=== PATIENT | male | born 1970 | race Two or more races ===

== ENCOUNTER 2018-08-29 16:10 | Inpatient (IN) | payer SELFPAY ==
[~2018-08-29] VITALS: Ht 162.6 cm; Wt 66.2 kg
--- NOTE | 2018-08-29 16:29 | PHYS DOC ---
Adult General Chief Complaint Chief Complaint: NEURO SYMPTOMS/DEFICITS HPI HPI Patient is a 48 year old MALE, PRESENTED to ER today for evaluation of left-sided facial numbness and pain, left side headache for 2 days. Patient also has numbness and tingling sensation on his left-sided face and left upper and lower extremities. HIS did note that he has some slurred speech as well. Patient is a smoker, has history of HTN but not on any medication. He does not have any history OF CAD, DM, not on any medication, denied any recent travel or operation. he denies any chest pain, no abdominal pain, no nausea vomiting. He denies any head or neck injury. HE denies any fever. Review of Systems Review of Systems Constitutional: Denies fever or chills [] Eyes: Denies change in visual acuity, redness, or eye pain [] HENT: Denies nasal congestion or sore throat. POSITIVE FOR LEFT SIDE HEADACHE. Respiratory: Denies cough or shortness of breath [] Cardiovascular: No additional information not addressed in HPI [] GI: Denies abdominal pain, nausea, vomiting, bloody stools or diarrhea [] : Denies dysuria or hematuria [] Musculoskeletal: Denies back pain or joint pain [] Integument: Denies rash or skin lesions [] Neurologic: Positive for left side headache,left side facial , left upper and lower extremities numbness and tingling sensation. Endocrine: Denies polyuria or polydipsia [] All other systems were reviewed and found to be within normal limits, except as documented in this note. Current Medications Current Medications Current Medications Medications (Trade) Dose Ordered Sig/William Start Time Stop Time Status Last Admin Dose Admin Ceftriaxone Sodium (Rocephin) 1 gm 1X ONCE 08/29/18 17:30 08/29/18 17:31 DC 08/29/18 17:37 1 GM Insulin Human Regular (HumuLIN R VIAL) 10 unit 1X ONCE 08/29/18 17:30 08/29/18 17:31 DC 08/29/18 17:45 10 UNIT Labetalol HCl (Normodyne Iv Push) 10 mg 1X ONCE 08/29/18 18:00 08/29/18 18:01 UNV Ondansetron HCl (Zofran) 4 mg PRN Q8HRS PRN 08/29/18 17:45 08/30/18 17:44 Sodium Chloride 1,000 ml @ 100 mls/hr Q10H 08/29/18 17:45 08/30/18 17:44 Allergies Allergies Allergies Coded Allergies Type Severity Reaction Last Updated Verified No Known Drug Allergies 08/29/18 No Physical Exam Physical Exam Constitutional: Well developed, well nourished, no acute distress, non-toxic appearance. [] HENT: Normocephalic, atraumatic, bilateral external ears normal, oropharynx moist, no oral exudates, nose normal. [] Eyes: PERRLA, EOMI, conjunctiva normal, no discharge. [] Neck: Normal range of motion, no tenderness, supple, no stridor. [] Cardiovascular:Heart rate regular rhythm, no murmur [] Lungs & Thorax: Bilateral breath sounds clear to auscultation [] Abdomen: Bowel sounds normal, soft, no tenderness, no masses, no pulsatile masses. [] Skin: Warm, dry, no erythema, no rash. [] Back: No tenderness, no CVA tenderness. [] Extremities: No tenderness, no cyanosis, no clubbing, ROM intact, no edema. [] Neurologic: Alert and oriented X 3, normal motor function, normal sensory function, no focal deficits noted. [] Psychologic: Affect normal, judgement normal, mood normal. [] Current Patient Data Vital Signs Vital Signs Date Time Temp Pulse Resp B/P (MAP) Pulse Ox O2 Delivery O2 Flow Rate FiO2 08/29/18 16:54 124 18 98 08/29/18 16:20 99.5 197/122 (147) Room Air 99.5 Lab Values Laboratory Tests Test 08/29/18 16:35 White Blood Count 11.1 x10^3/uL (4.0-11.0) H Red Blood Count 5.04 x10^6/uL (4.30-5.70) Hemoglobin 15.5 g/dL (13.0-17.5) Hematocrit 45.2 % (39.0-53.0) Mean Corpuscular Volume 90 fL (79-100) Mean Corpuscular Hemoglobin 31 pg (25-35) Mean Corpuscular Hemoglobin Concent 34 g/dL (31-37) Red Cell Distribution Width 12.9 % (11.5-14.5) Platelet Count 308 x10^3/uL (140-400) Neutrophils (%) (Auto) 73 % (31-73) Lymphocytes (%) (Auto) 17 % (24-48) L Monocytes (%) (Auto) 9 % (0-9) Eosinophils (%) (Auto) 0 % (0-3) Basophils (%) (Auto) 1 % (0-3) Neutrophils # (Auto) 8.1 x10^3uL (1.8-7.7) H Lymphocytes # (Auto) 1.9 x10^3/uL (1.0-4.8) Monocytes # (Auto) 0.9 x10^3/uL (0.0-1.1) Eosinophils # (Auto) 0.0 x10^3/uL (0.0-0.7) Basophils # (Auto) 0.1 x10^3/uL (0.0-0.2) Prothrombin Time 12.2 SEC (11.7-14.0) Prothrombin Time INR 0.9 (0.8-1.1) PTT 29 SEC (24-38) Sodium Level 136 mmol/L (136-145) Potassium Level 3.6 mmol/L (3.5-5.1) Chloride Level 97 mmol/L (98-107) L Carbon Dioxide Level 28 mmol/L (21-32) Anion Gap 11 (6-14) Blood Urea Nitrogen 11 mg/dL (8-26) Creatinine 0.9 mg/dL (0.7-1.3) Estimated GFR (Cockcroft-Gault) 90.4 BUN/Creatinine Ratio 12 (6-20) Glucose Level 444 mg/dL (70-99) H Glucose (Fingerstick) 435 mg/dL (70-99) H Calcium Level 9.1 mg/dL (8.5-10.1) Magnesium Level 2.0 mg/dL (1.8-2.4) Total Bilirubin 0.4 mg/dL (0.2-1.0) Aspartate Amino Transferase (AST) 12 U/L (15-37) L Alanine Aminotransferase (ALT) 16 U/L (16-63) Alkaline Phosphatase 100 U/L (46-116) Troponin I Quantitative < 0.017 ng/mL (0.000-0.055) RQ-Pqq-Y-Type Natriuretic Peptide 100 pg/mL (0-124) Total Protein 7.7 g/dL (6.4-8.2) Albumin 3.4 g/dL (3.4-5.0) Albumin/Globulin Ratio 0.8 (1.0-1.7) L Thyroid Stimulating Hormone (TSH) 0.405 uIU/mL (0.358-3.74) Ethyl Alcohol Level < 10 mg/dL (0-10) Laboratory Tests 08/29/18 16:35 Laboratory Tests 08/29/18 16:35 EKG EKG EKG WAS READ BY THIS PHYSICIAN AT 1623, RATE OF 123 BPM, NO STEMI, SINUS TACHYCARDIA[] Radiology/Procedures Radiology/Procedures [][facility] [address] [place] [address] IMAGING REPORT Signed PATIENT: SUSIE COLON ACCOUNT: [id number] : 1970 LOCATION: ER AGE: 48 SEX: M EXAM STATUS: REG ER ORD. PHYSICIAN: PARMINDER RAMIREZ DO REASON: left side facial numbness, left side numbness PROCEDURE: CT HEAD WO CONTRAST CT HEAD WO CONTRAST Clinical indications: left sided numbness, left-sided facial numbness. COMPARISON: None available. Technique: Noncontrast axial cross sectional scanning of the head was performed. PQRS compliance Statement One or more of the following individualized dose reduction techniques were utilized for this study: 1. Automated exposure control 2. Adjustment of the mA and/or kV according to patient size 3. Use of iterative reconstruction technique Findings: No acute intracranial hemorrhage or midline shift or mass-effect or hydrocephalus or extra-axial fluid collection is seen. No focal hypodense area or sulci effacement is seen to indicate an acute infarct or edema radiographically. No skull fracture or pneumocephalus is seen. No opacification of the mastoid sinuses or the middle ear cavities is seen. There is a large air-fluid level with mucosal thickening of the left maxillary sinus. The maxillary sinuses are not completely seen in this study. Impression: No acute intracranial abnormality is seen. Severe acute left maxillary sinusitis. Electronically signed by: Natalya Sears MD (08/29/2018 5:10 PM) [place] [id number] DICTATED and SIGNED BY: NATALYA SEARS MD DATE: 08/29/18 0220 Course & Med Decision Making Course & Med Decision Making Pertinent Labs and Imaging studies reviewed. (See chart for details) [] Dragon Disclaimer Dragon Disclaimer This electronic medical record was generated, in whole or in part, using a voice recognition dictation system. Departure Departure Impression: Primary Impression: Paresthesia of left upper and lower extremity Additional Impressions: Facial paresthesia Hyperglycemia Hypertension Sinusitis, acute Disposition: 09 ADMITTED INPATIENT Admitting Physician: Other (Dr. Cuate CALVERT) Condition: STABLE Referrals: UNKNOWN PCP NAME (PCP) Problem Qualifiers PARMINDER RAMIREZ DO Aug 29, 2018 16:29
[2018-08-29 16:50] LABS: BASO # 0.1 x10^3/uL (0.0-0.2); BASO % 1 % (0-3); EOS % 0 % (0-3); HEMATOCRIT 45.2 % (39.0-53.0); HEMOGLOBIN 15.5 g/dL (13.0-17.5); LYMPH # 1.9 x10^3/uL (1.0-4.8); LYMPH % 17 % (24-48); MEAN CORPUSCULAR HEMOGLOBIN 31 pg (25-35); MEAN CORPUSCULAR HGB CONC 34 g/dL (31-37); MEAN CORPUSCULAR VOLUME 90 fL (79-100); MONO # 0.9 x10^3/uL (0.0-1.1); MONO % 9 % (0-9); NEUT # 8.1 x10^3uL (1.8-7.7); NEUT % 73 % (31-73); PLATELET COUNT 308 x10^3/uL (140-400); RED BLOOD COUNT 5.04 x10^6/uL (4.30-5.70); RED CELL DISTRIBUTION WIDTH 12.9 % (11.5-14.5); WHITE BLOOD COUNT 11.1 x10^3/uL (4.0-11.0)
[2018-08-29 16:59] LABS: PROTHROMBIN TIME PATIENT 12.2 SEC (11.7-14.0)
--- NOTE | 2018-08-29 17:10 | RAD ---
PORTABLE CHEST 1V Clinical Indication: S/P CHEST PAIN ALSO STATES HX OF LEFT SIDED EYE PAIN. NOT SLEEP LAST NIGHT BECAUSE OF IT HX OF DIABETES Comparison: None. Findings: The cardiomediastinal silhouette is normal. Lungs are clear. There is no pneumothorax. No pleural effusion is appreciated. No acute bone abnormality. IMPRESSION: No acute cardiopulmonary process. Electronically signed by: Nathanael Mejia MD (08/29/2018 5:05 PM) [id number]
--- NOTE | 2018-08-29 17:14 | RAD ---
CT HEAD WO CONTRAST Clinical indications: left sided numbness, left-sided facial numbness. COMPARISON: None available. Technique: Noncontrast axial cross sectional scanning of the head was performed. PQRS compliance Statement One or more of the following individualized dose reduction techniques were utilized for this study: 1. Automated exposure control 2. Adjustment of the mA and/or kV according to patient size 3. Use of iterative reconstruction technique Findings: No acute intracranial hemorrhage or midline shift or mass-effect or hydrocephalus or extra-axial fluid collection is seen. No focal hypodense area or sulci effacement is seen to indicate an acute infarct or edema radiographically. No skull fracture or pneumocephalus is seen. No opacification of the mastoid sinuses or the middle ear cavities is seen. There is a large air-fluid level with mucosal thickening of the left maxillary sinus. The maxillary sinuses are not completely seen in this study. Impression: No acute intracranial abnormality is seen. Severe acute left maxillary sinusitis. Electronically signed by: Maurizio Sears MD (08/29/2018 5:10 PM) [place] [id number]
[2018-08-29] MEDS ORDERED: IV NORMAL SALINE 1000ML BAG 1,000 ML IV ONE (17:15)
[2018-08-29 17:26] LABS: CALCIUM 9.1 mg/dL (8.5-10.1); CREATININE 0.9 mg/dL (0.7-1.3); GFR 90.4; POTASSIUM 3.6 mmol/L (3.5-5.1)
[2018-08-29] MEDS ORDERED: cefTRIAXone IV Push 1 GM VIAL. IVP ONE (17:30)
[2018-08-29] MEDS ORDERED: INSULIN REGULAR 100 UNIT/ML 3ML VIAL. IV ONE (17:30)
[2018-08-29 17:33] LABS: ALBUMIN 3.4 g/dL (3.4-5.0); ALBUMIN/GLOBULIN RATIO 0.8 (1.0-1.7); TOTAL BILIRUBIN 0.4 mg/dL (0.2-1.0); TOTAL PROTEIN 7.7 g/dL (6.4-8.2)
[2018-08-29] MEDS ORDERED: ONDANSETRON PF 4 MG/2 ML VIAL. IV PRN ×2 (17:45→18:00)
--- NOTE | 2018-08-29 17:56 | PDOC1 ---
History and Physical Date of Admission Date of Admission DATE: 08/29/18 TIME: 17:50 Identification/Chief Complaint Chief Complaint Left arm weakness Source Source: Caregiver, Chart review, Patient History of Present Illness History of Present Illness Mr Murphy is a 48 year old male (portuguese speaking only) with uncertain PMHx (at least HTN) p/w left hand production broacher weakness with associated left- sided facial numbness and pain, left side headache for 2 days. Patient also has numbness and tingling sensation on his left-sided face and left upper and lower extremities. Spouse did note that he has some slurred speech as well since 2 days ago. Patient is a smoker, has history of HTN but not on any medication. He does not have any history of CAD, DM, not on any medication, denied any recent travel or recent illnesses. He denies any chest pain, no abdominal pain, no nausea vomiting. He denies any head or neck injury. He denies any fever. In ED was noted with BP 197/122 and glucose > 400 fasting (not DKA) and CT head with no intracranial abnormality, but severe left maxillary sinusitis noted. Past Medical History Cardiovascular: HTN Pulmonary: No pertinent hx GI: No pertinent hx Heme/Onc: No pertinent hx Hepatobiliary: No pertinent hx Psych: No pertinent hx Rheumatologic: No pertinent hx Infectious disease: No pertinent hx ENT: Sincusitis Renal/: No pertinent hx Endocrine: No pertinent hx Dermatology: No pertinent hx Past Surgical History Past Surgical History: No pertinent history Family History Family History: Diabetes, High Cholestrol, Hypertension Social History Smoke: 1 pack per day ALCOHOL: none Drugs: None Current Problem List Problem List Problems Medical Problems: (1) Facial paresthesia Status: Acute (2) Hyperglycemia Status: Acute (3) Hypertension Status: Acute (4) Paresthesia of left upper and lower extremity Status: Acute (5) Sinusitis, acute Status: Acute Current Medications Current Medications Current Medications Sodium Chloride 1,000 ml @ 1,000 mls/hr 1X ONCE IV Last administered on at 17:37; Start 08/29/18 at 17:15; Stop 08/29/18 at 18:14 Ceftriaxone Sodium (Rocephin) 1 gm 1X ONCE IVP Last administered on 08/29/18at 17:37; Start 08/29/18 at 17:30; Stop 08/29/18 at 17:31; Status DC Insulin Human Regular (HumuLIN R VIAL) 10 unit 1X ONCE IV Last administered on 08/29/18at 17:45; Start 08/29/18 at 17:30; Stop 08/29/18 at 17:31; Status DC Ondansetron HCl (Zofran) 4 mg PRN Q8HRS PRN IV NAUSEA/VOMITING; Start 08/29/18 at 17:45; Stop 08/30/18 at 17:44 Sodium Chloride 1,000 ml @ 100 mls/hr Q10H IV ; Start 08/29/18 at 17:45; Stop 08/30/18 at 17:44 Allergies Allergies: Coded Allergies: No Known Drug Allergies (Unverified , 08/29/18) ROS General: YES: Fatigue, Malaise; No: Chills, Night Sweats, Appetite, Other PSYCHOLOGICAL ROS: YES: Anxiety; No: Behavioral Disorder, Concentration difficultie, Decreased libido, Depression, Disorientation, Hallucinations, Hostility, Irritablity, Memory difficulties, Mood Swings, Obsessive thoughts, Physical abuse, Sexual abuse, Sleep disturbances, Suicidal ideation, Other Eyes: Yes Blurry vision; No Decreased vision, No Double vision, No Dry eyes, No Excessive tearing, No Eye Pain, No Itchy Eyes, No Loss of vision, No Photophobia, No Scotomata, No Uses contacts, No Uses glasses, No Other HEENT: YES: Heacaches, Sinus pain; No: Visual Changes, Hearing change, Nasal congestion, Nasal discharge, Oral lesions, Sore Throat, Epistaxis, Sneezing, Snoring, Tinnitus, Vertigo, Vocal changes, Other ALLERGY AND IMMUNOLOGY: No: Hives, Insect Bite Sensitivity, Itchy/Watery Eyes, Nasal Congestion, Post Nasal Drip, Seasonal Allergies, Other Hematological and Lymphatic: No: Bleeding Problems, Blood Clots, Blood Transfusions, Brusing, Night Sweats, Pallor, Swollen Lymph Nodes, Other ENDOCRINE: No: Breast Changes, Galactorrhea, Hair Pattern Changes, Hot Flashes , Malaise/lethargy, Mood Swings, Palpitations, Polydipsia/polyuria, Skin Changes , Temperature Intolerance, Unexpected Weight Changes, Other Breast: No New/Changing Breast Lumps, No Nipple changes, No Nipple discharge, No Other Respiratory: No: Cough, Hemoptysis, Orthopnea, Pleuritic Pain, Shortness of breath, SOB with excertion, Sputum Changes, Stridor, Tachypnea, Wheezing, Other Cardiovascular: No Chest Pain, No Palpitations, No Orthopnea, No Paroxysmal Noc. Dyspnea, No Edema, No Lt Headedness, No Other Gastrointestinal: Yes Nausea; No Vomiting, No Abdominal Pain, No Diarrhea, No Constipation, No Melena, No Hematochezia, No Other Genitourinary: No Dysuria, No Frequency, No Incontinence, No Hematuria, No Retention, No Discharge, No Urgency, No Pain, No Flank Pain, No Other, No , No , No , No , No , No , No Musculoskeletal: No Gait Disturbance, No Joint Pain, No Joint Stiffness, No Joint Swelling, No Muscle Pain, No Muscular Weakness, No Pain In:, No Swelling In:, No Other Neurological: Yes Gait Disturbance, Yes Impaired Coord/balance, Yes Numbness/ Tingling, Yes Speech Problems, Yes Weakness; No Behavorial Changes, No Bowel/Bladder ControlChng, No Confusion, No Dizziness, No Headaches, No Memory Loss, No Seizures, No Tremors, No Visual Changes, No Other Skin: No Dry Skin, No Eczema, No Hair Changes, No Lumps, No Mole Changes, No Mottling, No Nail Changes, No Pruritus, No Rash, No Skin Lesion Changes, No Other, No Acne Physical Exam General: Alert, Oriented X3, Cooperative, No acute distress HEENT: PERRLA Lungs: Clear to auscultation, Normal air movement Heart: S1S2, RRR, no gallops, no murmurs Abdomen: Normal bowel sounds, Soft, No tenderness, No hepatosplenomegaly, No masses Rectal Exam: not examined Extremities: No clubbing, No cyanosis, No edema, Normal pulses, No tenderness/ swelling Skin: No rashes, No breakdown, No significant lesion Neuro: Normal tone, Cranial nerves 3-12 NL, Reflexes 2+, Other (decreased sensation on left face and left arm, leg. Decreased left hand production broacher strength) Vitals Vitals Vital Signs Date Time Temp Pulse Resp B/P (MAP) Pulse Ox O2 Delivery O2 Flow Rate FiO2 08/29/18 16:54 124 18 98 08/29/18 16:20 99.5 197/122 (147) Room Air 99.5 Labs Labs Laboratory Tests Test 08/29/18 16:35 White Blood Count 11.1 x10^3/uL (4.0-11.0) Red Blood Count 5.04 x10^6/uL (4.30-5.70) Hemoglobin 15.5 g/dL (13.0-17.5) Hematocrit 45.2 % (39.0-53.0) Mean Corpuscular Volume 90 fL (79-100) Mean Corpuscular Hemoglobin 31 pg (25-35) Mean Corpuscular Hemoglobin Concent 34 g/dL (31-37) Red Cell Distribution Width 12.9 % (11.5-14.5) Platelet Count 308 x10^3/uL (140-400) Neutrophils (%) (Auto) 73 % (31-73) Lymphocytes (%) (Auto) 17 % (24-48) Monocytes (%) (Auto) 9 % (0-9) Eosinophils (%) (Auto) 0 % (0-3) Basophils (%) (Auto) 1 % (0-3) Neutrophils # (Auto) 8.1 x10^3uL (1.8-7.7) Lymphocytes # (Auto) 1.9 x10^3/uL (1.0-4.8) Monocytes # (Auto) 0.9 x10^3/uL (0.0-1.1) Eosinophils # (Auto) 0.0 x10^3/uL (0.0-0.7) Basophils # (Auto) 0.1 x10^3/uL (0.0-0.2) Prothrombin Time 12.2 SEC (11.7-14.0) Prothromb Time International Ratio 0.9 (0.8-1.1) Activated Partial Thromboplast Time 29 SEC (24-38) Sodium Level 136 mmol/L (136-145) Potassium Level 3.6 mmol/L (3.5-5.1) Chloride Level 97 mmol/L (98-107) Carbon Dioxide Level 28 mmol/L (21-32) Anion Gap 11 (6-14) Blood Urea Nitrogen 11 mg/dL (8-26) Creatinine 0.9 mg/dL (0.7-1.3) Estimated GFR (Cockcroft-Gault) 90.4 BUN/Creatinine Ratio 12 (6-20) Glucose Level 444 mg/dL (70-99) Glucose (Fingerstick) 435 mg/dL (70-99) Calcium Level 9.1 mg/dL (8.5-10.1) Magnesium Level 2.0 mg/dL (1.8-2.4) Total Bilirubin 0.4 mg/dL (0.2-1.0) Aspartate Amino Transf (AST/SGOT) 12 U/L (15-37) Alanine Aminotransferase (ALT/SGPT) 16 U/L (16-63) Alkaline Phosphatase 100 U/L (46-116) Troponin I Quantitative < 0.017 ng/mL (0.000-0.055) XN-Obe-B-Type Natriuretic Peptide 100 pg/mL (0-124) Total Protein 7.7 g/dL (6.4-8.2) Albumin 3.4 g/dL (3.4-5.0) Albumin/Globulin Ratio 0.8 (1.0-1.7) Thyroid Stimulating Hormone (TSH) 0.405 uIU/mL (0.358-3.74) Ethyl Alcohol Level < 10 mg/dL (0-10) Laboratory Tests Test 08/29/18 16:35 White Blood Count 11.1 x10^3/uL (4.0-11.0) Red Blood Count 5.04 x10^6/uL (4.30-5.70) Hemoglobin 15.5 g/dL (13.0-17.5) Hematocrit 45.2 % (39.0-53.0) Mean Corpuscular Volume 90 fL (79-100) Mean Corpuscular Hemoglobin 31 pg (25-35) Mean Corpuscular Hemoglobin Concent 34 g/dL (31-37) Red Cell Distribution Width 12.9 % (11.5-14.5) Platelet Count 308 x10^3/uL (140-400) Neutrophils (%) (Auto) 73 % (31-73) Lymphocytes (%) (Auto) 17 % (24-48) Monocytes (%) (Auto) 9 % (0-9) Eosinophils (%) (Auto) 0 % (0-3) Basophils (%) (Auto) 1 % (0-3) Neutrophils # (Auto) 8.1 x10^3uL (1.8-7.7) Lymphocytes # (Auto) 1.9 x10^3/uL (1.0-4.8) Monocytes # (Auto) 0.9 x10^3/uL (0.0-1.1) Eosinophils # (Auto) 0.0 x10^3/uL (0.0-0.7) Basophils # (Auto) 0.1 x10^3/uL (0.0-0.2) Prothrombin Time 12.2 SEC (11.7-14.0) Prothromb Time International Ratio 0.9 (0.8-1.1) Activated Partial Thromboplast Time 29 SEC (24-38) Sodium Level 136 mmol/L (136-145) Potassium Level 3.6 mmol/L (3.5-5.1) Chloride Level 97 mmol/L (98-107) Carbon Dioxide Level 28 mmol/L (21-32) Anion Gap 11 (6-14) Blood Urea Nitrogen 11 mg/dL (8-26) Creatinine 0.9 mg/dL (0.7-1.3) Estimated GFR (Cockcroft-Gault) 90.4 BUN/Creatinine Ratio 12 (6-20) Glucose Level 444 mg/dL (70-99) Glucose (Fingerstick) 435 mg/dL (70-99) Calcium Level 9.1 mg/dL (8.5-10.1) Magnesium Level 2.0 mg/dL (1.8-2.4) Total Bilirubin 0.4 mg/dL (0.2-1.0) Aspartate Amino Transf (AST/SGOT) 12 U/L (15-37) Alanine Aminotransferase (ALT/SGPT) 16 U/L (16-63) Alkaline Phosphatase 100 U/L (46-116) Troponin I Quantitative < 0.017 ng/mL (0.000-0.055) AW-Adz-J-Type Natriuretic Peptide 100 pg/mL (0-124) Total Protein 7.7 g/dL (6.4-8.2) Albumin 3.4 g/dL (3.4-5.0) Albumin/Globulin Ratio 0.8 (1.0-1.7) Thyroid Stimulating Hormone (TSH) 0.405 uIU/mL (0.358-3.74) Ethyl Alcohol Level < 10 mg/dL (0-10) Images Images Ct head - No acute intracranial hemorrhage or midline shift or mass-effect or hydrocephalus or extra-axial fluid collection is seen. No focal hypodense area or sulci effacement is seen to indicate an acute infarct or edema radiographically. No skull fracture or pneumocephalus is seen. No opacification of the mastoid sinuses or the middle ear cavities is seen. There is a large air-fluid level with mucosal thickening of the left maxillary sinus. The maxillary sinuses are not completely seen in this study. Impression: No acute intracranial abnormality is seen. Severe acute left maxillary sinusitis. CXR - No acute cardiopulmonary process. VTE Prophylaxis Ordered VTE Prophylaxis Devices: Yes VTE Pharmacological Prophylaxi: No Assessment/Plan Assessment/Plan A/P: Left sided weakness/numbness - exhibits sx of acute CVA on examination. 2 days later, so no tPA. Will control BP, ASA, statin. Consult Neurology. MRI is indicated Malignant HTN - could be cause of his weakness as well, will control with IV labetalol. Acute encephalopathy - per spouse, has been confused. likely from BP, CVA/TIA, and hyperglycemia. Will control BP Hyperglycemia - likely has DM, will place on basal bolus plus regimen, check A1c Left maxillary sinusitis - will treat with augmentin Smoker - higher risk for CVA, nicotine patch. FEN - ADA diet pending bedside swallow evaluation PPX - SCDs FULL CODE Inpatient for likely new CVA, malignant HTN and likely newly diagnosed diabetes with acute maxillary sinusitis, likely will require at least 2 midnights of inpatient care. SAAD CALVERT MD Aug 29, 2018 17:56
[2018-08-29] MEDS ORDERED: DEXTROSE 50% 25 GM / 50ML DISP.SYRIN. IV PRN (18:00)
[2018-08-29] MEDS ORDERED: HYDROcodone/APAP 5/325MG 1 TAB TABLET PO PRN (18:00)
[2018-08-29] MEDS ORDERED: LABETALOL 20 MG/4 ML DISP.SYRIN. IVP PRN (18:00)
[2018-08-29] MEDS ORDERED: MAGNESIUM HYDROXIDE 2,400 MG/30 ML ORAL.SUSP. PO PRN (18:00)
[2018-08-29] MEDS ORDERED: ZOLPIDEM 5 MG TABLET. PO PRN (18:00)
[2018-08-29] MEDS ORDERED: LABETALOL 20 MG/4 ML DISP.SYRIN. IVP ONE ×2 (18:00)
[2018-08-29] MEDS ORDERED: PROCHLORPERAZINE 10 MG/2 ML VIAL. IV PRN (18:00)
[2018-08-29] MEDS ORDERED: ACETAMINOPHEN 325 MG TABLET. PO PRN (18:00)
[2018-08-29] MEDS: HEPARIN for SUB-Q USE 5,000 UNIT/ML VIAL. SQ SCH (18:26)
[2018-08-29] MEDS: IV NORMAL SALINE 1000ML BAG 1,000 ML IV SCH (18:27)
[2018-08-29 19:57] VITALS: BP 137/87
[2018-08-29] MEDS ORDERED: INSULIN GLARGINE 300 UNITS/3 ML INSULN.PEN. SQ SCH (21:00)
[2018-08-29] MEDS: SENNOSIDES/DOCUSATE 8.6/50MG TABLET. PO SCH (21:00)
[2018-08-29] MEDS ORDERED: ATORVASTATIN CALCIUM 40 MG TABLET. PO SCH (21:30)
[2018-08-29] MEDS ORDERED: ASPIRIN CHEWABLE 81 MG TABLET. PO ONE (22:00)
[2018-08-29] MEDS: AMOXICILLIN/K CLAV 875/125MG TABLET. PO SCH (22:05)
[2018-08-29 23:33] VITALS: BP 141/89
[2018-08-30 03:18] VITALS: BP 140/89
[2018-08-30] MEDS: IV NORMAL SALINE 1000ML BAG 1,000 ML IV SCH ×2 (03:45→13:45)
[2018-08-30 05:15] LABS: BASO # 0.1 x10^3/uL (0.0-0.2); BASO % 1 % (0-3); EOS # 0.1 x10^3/uL (0.0-0.7); EOS % 1 % (0-3); HEMATOCRIT 40.6 % (39.0-53.0); LYMPH # 2.2 x10^3/uL (1.0-4.8); LYMPH % 21 % (24-48); MEAN CORPUSCULAR HEMOGLOBIN 31 pg (25-35); MEAN CORPUSCULAR HGB CONC 35 g/dL (31-37); MEAN CORPUSCULAR VOLUME 90 fL (79-100); MONO # 0.9 x10^3/uL (0.0-1.1); MONO % 9 % (0-9); NEUT # 7.2 x10^3uL (1.8-7.7); NEUT % 69 % (31-73); PLATELET COUNT 277 x10^3/uL (140-400); RED CELL DISTRIBUTION WIDTH 12.8 % (11.5-14.5); WHITE BLOOD COUNT 10.5 x10^3/uL (4.0-11.0)
[2018-08-30 05:32] LABS: CREATININE 0.6 mg/dL (0.7-1.3); GFR 144.4; POTASSIUM 3.3 mmol/L (3.5-5.1)
--- NOTE | 2018-08-30 06:04 | EKG ---
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
[2018-08-30] MEDS: HEPARIN for SUB-Q USE 5,000 UNIT/ML VIAL. SQ SCH ×3 (06:07→14:00)
[2018-08-30 07:00] VITALS: BP 137/84
--- NOTE | 2018-08-30 07:03 | PDOC ---
PROGRESS NOTES Chief Complaint Chief Complaint A/P: Left sided weakness/numbness - exhibits sx of acute CVA on examination. 2 days later, so no tPA. Will control BP, ASA, statin. Consulted Neurology. MRI is indicated, ordered. Malignant HTN - could be cause of his weakness as well, will control with IV labetalol. Add lisinopril, check microalbumin Acute encephalopathy - per spouse, has been confused, less so today. likely from BP, CVA/TIA, and hyperglycemia. Will control BP Hyperglycemia - likely has DM, will place on basal bolus plus regimen, check A1c Left maxillary sinusitis - will treat with augmentin, add clindamycin today Smoker - higher risk for CVA, nicotine patch. FEN - ADA diet pending bedside swallow evaluation PPX - SCDs FULL CODE Inpatient for likely new CVA, malignant HTN and likely newly diagnosed diabetes with acute maxillary sinusitis, likely will require at least 2 midnights of inpatient care. 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 Patient also has numbness and tingling sensation on his left-sided face and left upper and lower extremities. Spouse did note that he has some slurred speech as well since 2 days ago. Patient is a smoker, has history of HTN but not on any medication. He does not have any history of CAD, DM, not on any medication, denied any recent travel or recent illnesses. He denies any chest pain, no abdominal pain, no nausea vomiting. He denies any head or neck injury. He denies any fever. In ED was noted with BP 197/122 and glucose > 400 fasting (not DKA) and CT head with no intracranial abnormality, but severe left maxillary sinusitis noted. 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 Feeling a bit better today, less confused. Feels his left sided weakness improved. Still with some left eye pain and left maxillary pain, is better than last night. BP better. Has some new cough, states this happens every time he stops smoking. Plan: Add clindamycin for sinusitis. MRI brain, neurology consulted Add lisinopril for BP PT/OT to see Hopefully home in the next day or 2 Vitals Vitals Vital Signs Date Time Temp Pulse Resp B/P (MAP) Pulse Ox O2 Delivery O2 Flow Rate FiO2 08/30/18 03:18 98.5 93 18 140/89 (106) 97 Room Air 98.5 08/29/18 19:57 98.0 Physical Exam General: Alert, Oriented X3, Cooperative, No acute distress Abdomen: Normal bowel sounds, Soft, No tenderness, No hepatosplenomegaly, No masses Extremities: No clubbing, No cyanosis, No edema, Normal pulses, No tenderness/ swelling Skin: No rashes, No breakdown, No significant lesion Labs LABS Laboratory Tests Test 08/29/18 16:35 08/29/18 19:19 08/29/18 20:57 08/30/18 04:55 White Blood Count 11.1 x10^3/uL (4.0-11.0) 10.5 x10^3/uL (4.0-11.0) Red Blood Count 5.04 x10^6/uL (4.30-5.70) 4.50 x10^6/uL (4.30-5.70) Hemoglobin 15.5 g/dL (13.0-17.5) 14.0 g/dL (13.0-17.5) Hematocrit 45.2 % (39.0-53.0) 40.6 % (39.0-53.0) Mean Corpuscular Volume 90 fL (79-100) 90 fL (79-100) Mean Corpuscular Hemoglobin 31 pg (25-35) 31 pg (25-35) Mean Corpuscular Hemoglobin Concent 34 g/dL (31-37) 35 g/dL (31-37) Red Cell Distribution Width 12.9 % (11.5-14.5) 12.8 % (11.5-14.5) Platelet Count 308 x10^3/uL (140-400) 277 x10^3/uL (140-400) Neutrophils (%) (Auto) 73 % (31-73) 69 % (31-73) Lymphocytes (%) (Auto) 17 % (24-48) 21 % (24-48) Monocytes (%) (Auto) 9 % (0-9) 9 % (0-9) Eosinophils (%) (Auto) 0 % (0-3) 1 % (0-3) Basophils (%) (Auto) 1 % (0-3) 1 % (0-3) Neutrophils # (Auto) 8.1 x10^3uL (1.8-7.7) 7.2 x10^3uL (1.8-7.7) Lymphocytes # (Auto) 1.9 x10^3/uL (1.0-4.8) 2.2 x10^3/uL (1.0-4.8) Monocytes # (Auto) 0.9 x10^3/uL (0.0-1.1) 0.9 x10^3/uL (0.0-1.1) Eosinophils # (Auto) 0.0 x10^3/uL (0.0-0.7) 0.1 x10^3/uL (0.0-0.7) Basophils # (Auto) 0.1 x10^3/uL (0.0-0.2) 0.1 x10^3/uL (0.0-0.2) Prothrombin Time 12.2 SEC (11.7-14.0) Prothromb Time International Ratio 0.9 (0.8-1.1) Activated Partial Thromboplast Time 29 SEC (24-38) Sodium Level 136 mmol/L (136-145) 140 mmol/L (136-145) Potassium Level 3.6 mmol/L (3.5-5.1) 3.3 mmol/L (3.5-5.1) Chloride Level 97 mmol/L (98-107) 102 mmol/L (98-107) Carbon Dioxide Level 28 mmol/L (21-32) 28 mmol/L (21-32) Anion Gap 11 (6-14) 10 (6-14) Blood Urea Nitrogen 11 mg/dL (8-26) 10 mg/dL (8-26) Creatinine 0.9 mg/dL (0.7-1.3) 0.6 mg/dL (0.7-1.3) Estimated GFR (Cockcroft-Gault) 90.4 144.4 BUN/Creatinine Ratio 12 (6-20) Glucose Level 444 mg/dL (70-99) 178 mg/dL (70-99) Glucose (Fingerstick) 435 mg/dL (70-99) 177 mg/dL (70-99) 197 mg/dL (70-99) Calcium Level 9.1 mg/dL (8.5-10.1) 8.0 mg/dL (8.5-10.1) Magnesium Level 2.0 mg/dL (1.8-2.4) Total Bilirubin 0.4 mg/dL (0.2-1.0) Aspartate Amino Transf (AST/SGOT) 12 U/L (15-37) Alanine Aminotransferase (ALT/SGPT) 16 U/L (16-63) Alkaline Phosphatase 100 U/L (46-116) Troponin I Quantitative < 0.017 ng/mL (0.000-0.055) BU-Gfr-U-Type Natriuretic Peptide 100 pg/mL (0-124) Total Protein 7.7 g/dL (6.4-8.2) Albumin 3.4 g/dL (3.4-5.0) Albumin/Globulin Ratio 0.8 (1.0-1.7) Thyroid Stimulating Hormone (TSH) 0.405 uIU/mL (0.358-3.74) Ethyl Alcohol Level < 10 mg/dL (0-10) Assessment and Plan Assessmemt and Plan Problems Medical Problems: (1) Facial paresthesia Status: Acute (2) Hyperglycemia Status: Acute (3) Hypertension Status: Acute (4) Paresthesia of left upper and lower extremity Status: Acute (5) Sinusitis, acute Status: Acute Comment Review of Relevant I have reviewed the following items chance (where applicable) has been applied. Labs Laboratory Tests Test 08/29/18 16:35 08/29/18 19:19 08/29/18 20:57 08/30/18 04:55 White Blood Count 11.1 x10^3/uL (4.0-11.0) 10.5 x10^3/uL (4.0-11.0) Red Blood Count 5.04 x10^6/uL (4.30-5.70) 4.50 x10^6/uL (4.30-5.70) Hemoglobin 15.5 g/dL (13.0-17.5) 14.0 g/dL (13.0-17.5) Hematocrit 45.2 % (39.0-53.0) 40.6 % (39.0-53.0) Mean Corpuscular Volume 90 fL (79-100) 90 fL (79-100) Mean Corpuscular Hemoglobin 31 pg (25-35) 31 pg (25-35) Mean Corpuscular Hemoglobin Concent 34 g/dL (31-37) 35 g/dL (31-37) Red Cell Distribution Width 12.9 % (11.5-14.5) 12.8 % (11.5-14.5) Platelet Count 308 x10^3/uL (140-400) 277 x10^3/uL (140-400) Neutrophils (%) (Auto) 73 % (31-73) 69 % (31-73) Lymphocytes (%) (Auto) 17 % (24-48) 21 % (24-48) Monocytes (%) (Auto) 9 % (0-9) 9 % (0-9) Eosinophils (%) (Auto) 0 % (0-3) 1 % (0-3) Basophils (%) (Auto) 1 % (0-3) 1 % (0-3) Neutrophils # (Auto) 8.1 x10^3uL (1.8-7.7) 7.2 x10^3uL (1.8-7.7) Lymphocytes # (Auto) 1.9 x10^3/uL (1.0-4.8) 2.2 x10^3/uL (1.0-4.8) Monocytes # (Auto) 0.9 x10^3/uL (0.0-1.1) 0.9 x10^3/uL (0.0-1.1) Eosinophils # (Auto) 0.0 x10^3/uL (0.0-0.7) 0.1 x10^3/uL (0.0-0.7) Basophils # (Auto) 0.1 x10^3/uL (0.0-0.2) 0.1 x10^3/uL (0.0-0.2) Prothrombin Time 12.2 SEC (11.7-14.0) Prothromb Time International Ratio 0.9 (0.8-1.1) Activated Partial Thromboplast Time 29 SEC (24-38) Sodium Level 136 mmol/L (136-145) 140 mmol/L (136-145) Potassium Level 3.6 mmol/L (3.5-5.1) 3.3 mmol/L (3.5-5.1) Chloride Level 97 mmol/L (98-107) 102 mmol/L (98-107) Carbon Dioxide Level 28 mmol/L (21-32) 28 mmol/L (21-32) Anion Gap 11 (6-14) 10 (6-14) Blood Urea Nitrogen 11 mg/dL (8-26) 10 mg/dL (8-26) Creatinine 0.9 mg/dL (0.7-1.3) 0.6 mg/dL (0.7-1.3) Estimated GFR (Cockcroft-Gault) 90.4 144.4 BUN/Creatinine Ratio 12 (6-20) Glucose Level 444 mg/dL (70-99) 178 mg/dL (70-99) Glucose (Fingerstick) 435 mg/dL (70-99) 177 mg/dL (70-99) 197 mg/dL (70-99) Calcium Level 9.1 mg/dL (8.5-10.1) 8.0 mg/dL (8.5-10.1) Magnesium Level 2.0 mg/dL (1.8-2.4) Total Bilirubin 0.4 mg/dL (0.2-1.0) Aspartate Amino Transf (AST/SGOT) 12 U/L (15-37) Alanine Aminotransferase (ALT/SGPT) 16 U/L (16-63) Alkaline Phosphatase 100 U/L (46-116) Troponin I Quantitative < 0.017 ng/mL (0.000-0.055) IH-Hla-K-Type Natriuretic Peptide 100 pg/mL (0-124) Total Protein 7.7 g/dL (6.4-8.2) Albumin 3.4 g/dL (3.4-5.0) Albumin/Globulin Ratio 0.8 (1.0-1.7) Thyroid Stimulating Hormone (TSH) 0.405 uIU/mL (0.358-3.74) Ethyl Alcohol Level < 10 mg/dL (0-10) Laboratory Tests Test 08/29/18 16:35 08/29/18 19:19 08/29/18 20:57 08/30/18 04:55 White Blood Count 11.1 x10^3/uL (4.0-11.0) 10.5 x10^3/uL (4.0-11.0) Red Blood Count 5.04 x10^6/uL (4.30-5.70) 4.50 x10^6/uL (4.30-5.70) Hemoglobin 15.5 g/dL (13.0-17.5) 14.0 g/dL (13.0-17.5) Hematocrit 45.2 % (39.0-53.0) 40.6 % (39.0-53.0) Mean Corpuscular Volume 90 fL (79-100) 90 fL (79-100) Mean Corpuscular Hemoglobin 31 pg (25-35) 31 pg (25-35) Mean Corpuscular Hemoglobin Concent 34 g/dL (31-37) 35 g/dL (31-37) Red Cell Distribution Width 12.9 % (11.5-14.5) 12.8 % (11.5-14.5) Platelet Count 308 x10^3/uL (140-400) 277 x10^3/uL (140-400) Neutrophils (%) (Auto) 73 % (31-73) 69 % (31-73) Lymphocytes (%) (Auto) 17 % (24-48) 21 % (24-48) Monocytes (%) (Auto) 9 % (0-9) 9 % (0-9) Eosinophils (%) (Auto) 0 % (0-3) 1 % (0-3) Basophils (%) (Auto) 1 % (0-3) 1 % (0-3) Neutrophils # (Auto) 8.1 x10^3uL (1.8-7.7) 7.2 x10^3uL (1.8-7.7) Lymphocytes # (Auto) 1.9 x10^3/uL (1.0-4.8) 2.2 x10^3/uL (1.0-4.8) Monocytes # (Auto) 0.9 x10^3/uL (0.0-1.1) 0.9 x10^3/uL (0.0-1.1) Eosinophils # (Auto) 0.0 x10^3/uL (0.0-0.7) 0.1 x10^3/uL (0.0-0.7) Basophils # (Auto) 0.1 x10^3/uL (0.0-0.2) 0.1 x10^3/uL (0.0-0.2) Prothrombin Time 12.2 SEC (11.7-14.0) Prothromb Time International Ratio 0.9 (0.8-1.1) Activated Partial Thromboplast Time 29 SEC (24-38) Sodium Level 136 mmol/L (136-145) 140 mmol/L (136-145) Potassium Level 3.6 mmol/L (3.5-5.1) 3.3 mmol/L (3.5-5.1) Chloride Level 97 mmol/L (98-107) 102 mmol/L (98-107) Carbon Dioxide Level 28 mmol/L (21-32) 28 mmol/L (21-32) Anion Gap 11 (6-14) 10 (6-14) Blood Urea Nitrogen 11 mg/dL (8-26) 10 mg/dL (8-26) Creatinine 0.9 mg/dL (0.7-1.3) 0.6 mg/dL (0.7-1.3) Estimated GFR (Cockcroft-Gault) 90.4 144.4 BUN/Creatinine Ratio 12 (6-20) Glucose Level 444 mg/dL (70-99) 178 mg/dL (70-99) Glucose (Fingerstick) 435 mg/dL (70-99) 177 mg/dL (70-99) 197 mg/dL (70-99) Calcium Level 9.1 mg/dL (8.5-10.1) 8.0 mg/dL (8.5-10.1) Magnesium Level 2.0 mg/dL (1.8-2.4) Total Bilirubin 0.4 mg/dL (0.2-1.0) Aspartate Amino Transf (AST/SGOT) 12 U/L (15-37) Alanine Aminotransferase (ALT/SGPT) 16 U/L (16-63) Alkaline Phosphatase 100 U/L (46-116) Troponin I Quantitative < 0.017 ng/mL (0.000-0.055) XI-Iff-U-Type Natriuretic Peptide 100 pg/mL (0-124) Total Protein 7.7 g/dL (6.4-8.2) Albumin 3.4 g/dL (3.4-5.0) Albumin/Globulin Ratio 0.8 (1.0-1.7) Thyroid Stimulating Hormone (TSH) 0.405 uIU/mL (0.358-3.74) Ethyl Alcohol Level < 10 mg/dL (0-10) Medications Current Medications Sodium Chloride 1,000 ml @ 1,000 mls/hr 1X ONCE IV Last administered on at 17:37; Start 08/29/18 at 17:15; Stop 08/29/18 at 18:14; Status DC Ceftriaxone Sodium (Rocephin) 1 gm 1X ONCE IVP Last administered on 08/29/18at 17:37; Start 08/29/18 at 17:30; Stop 08/29/18 at 17:31; Status DC Insulin Human Regular (HumuLIN R VIAL) 10 unit 1X ONCE IV Last administered on 08/29/18at 17:45; Start 08/29/18 at 17:30; Stop 08/29/18 at 17:31; Status DC Ondansetron HCl (Zofran) 4 mg PRN Q8HRS PRN IV NAUSEA/VOMITING; Start 08/29/18 at 17:45; Stop 08/30/18 at 17:44 Sodium Chloride 1,000 ml @ 100 mls/hr Q10H IV Last administered on 08/30/18at 03:45; Start 08/29/18 at 17:45; Stop 08/30/18 at 17:44 Labetalol HCl (Normodyne Iv Push) 10 mg 1X ONCE IVP Last administered on at 18:18; Start 08/29/18 at 18:00; Stop 08/29/18 at 18:04; Status DC Labetalol HCl (Normodyne Iv Push) 10 mg 1X ONCE IVP ; Start 08/29/18 at 18:00; Stop 08/29/18 at 18:01; Status UNV Ondansetron HCl (Zofran) 4 mg PRN Q6HRS PRN IV NAUSEA/VOMITING; Start 08/29/18 at 18:00 Prochlorperazine Edisylate (Compazine) 10 mg PRN Q6HRS PRN IV NAUSEA/VOMITING; Start 08/29/18 at 18:00 Zolpidem Tartrate (Ambien) 5 mg PRN QHS PRN PO INSOMNIA, MAY REPEAT IN 1HR; Start 08/29/18 at 18:00 Acetaminophen/ Hydrocodone Bitart (Lortab 5/325) 1 tab PRN Q4HRS PRN PO MILD PAIN; Start 08/29/18 at 18:00 Acetaminophen (Tylenol) 650 mg PRN Q6HRS PRN PO Headaches, Temp > 101.5F; Start 08/29/18 at 18:00 Senna/Docusate Sodium (Senna Plus) 1 tab BID PO ; Start 08/29/18 at 21:00 Magnesium Hydroxide (Milk Of Magnesia) 2,400 mg PRN Q12HR PRN PO CONSTIPATION; Start 08/29/18 at 18:00 Heparin Sodium (Porcine) (Heparin Sodium) 5,000 unit Q8HRS SQ Last administered on 08/30/18at 06:07; Start 08/29/18 at 18:00 Insulin Glargine (Lantus) 8 units QHS SQ Last administered on 08/29/18at 22:16; Start 08/29/18 at 21:00 Insulin Human Lispro (HumaLOG) 0-7 UNITS TIDWMEALS SQ ; Start 08/30/18 at 08:00 Dextrose (Dextrose 50%-Water Syringe) 12.5 gm PRN Q15MIN PRN IV SEE COMMENTS; Start 08/29/18 at 18:00 Labetalol HCl (Normodyne Iv Push) 10 mg PRN Q4HRS PRN IVP htn; Start 08/29/18 at 18:00 Amoxicillin/ Clavulanate Potassium (Augmentin 875/ 125mg) 1 tab BID PO Last administered on 08/29/18at 22:05; Start 08/29/18 at 21:00 Aspirin (Children'S Aspirin) 324 mg 1X ONCE PO Last administered on 08/29/18at 22:00; Start 08/29/18 at 22:00; Stop 08/29/18 at 22:01; Status DC Aspirin (Ecotrin) 81 mg DAILYWBKFT PO ; Start 08/30/18 at 08:00 Atorvastatin Calcium (Lipitor) 40 mg QHS PO Last administered on 08/29/18at 21: 30; Start 08/29/18 at 21:30 Vitals/I & O Vital Sign - Last 24 Hours 08/29/18 08/29/18 08/29/18 08/29/18 16:20 16:24 16:54 17:43 Temp 99.5 99.5 Pulse 127 126 124 124 Resp 18 18 B/P (MAP) 197/122 (147) Pulse Ox 98 98 98 97 O2 Delivery Room Air 08/29/18 08/29/18 08/29/18 08/29/18 18:13 18:18 18:43 19:13 Pulse 124 123 107 103 Resp B/P (MAP) 193/99 Pulse Ox 98 98 97 08/29/18 08/29/18 08/30/18 19:57 23:33 03:18 Temp 98.8 98.2 98.5 98.8 98.2 98.5 Pulse 101 100 93 Resp 10 18 B/P (MAP) 137/87 (104) 141/89 (106) 140/89 (106) Pulse Ox 98 97 O2 Delivery Room Air Room Air Room Air O2 Flow Rate 98.0 Intake and Output 08/29/18 08/29/18 08/30/18 14:59 22:59 06:59 Intake Total 1100 ml 560 ml Balance 1100 ml 560 ml SAAD CALVERT MD Aug 30, 2018 07:02
[2018-08-30] MEDS ORDERED: POTASSIUM CHLORIDE 20 MEQ TABLET.ER. PO ONE (07:30)
[2018-08-30] MEDS ORDERED: ASPIRIN ENTERIC COATED 81 MG TABLET.DR. PO SCH (08:00)
[2018-08-30] MEDS: AMOXICILLIN/K CLAV 875/125MG TABLET. PO SCH (08:20)
[2018-08-30] MEDS: SENNOSIDES/DOCUSATE 8.6/50MG TABLET. PO SCH (08:21)
[2018-08-30] MEDS: INSULIN LISPRO 300 UNITS/3 ML INSULN.PEN. SQ SCH ×2 (08:24→12:27)
[2018-08-30] MEDS ORDERED: LISINOPRIL 20 MG TABLET PO SCH (09:15)
[2018-08-30 09:20] LABS: BILIRUBIN,URINE NEGATIVE (NEG); CLARITY,URINE CLEAR; COLOR,URINE YELLOW; NITRITE,URINE NEGATIVE (NEG); PH,URINE 5.5; PROTEIN,URINE NEGATIVE (NEG-TRACE)
[2018-08-30 09:25] LABS: BARBITURATES NEG (NEG); BENZODIAZEPINES NEG (NEG); CANNABINOIDS NEG (NEG); COCAINE NEG (NEG); METHADONE NEG (NEG); OPIATES NEG (NEG); PHENCYCLIDINE NEG (NEG)
[2018-08-30 09:29] LABS: AMPHETAMINE/METHAMPHETAMINE POS (NEG); BACTERIA,URINE 0 /HPF (0-FEW); RBC,URINE 0 /HPF (0-2); WBC,URINE 0 /HPF (0-4)
[2018-08-30] MEDS: CLINDAMYCIN 600MG PREMIX 50 ML IV SCH ×2 (10:24→14:00)
[2018-08-30 11:00] VITALS: BP 142/93
--- NOTE | 2018-08-30 12:24 | PDOC2 ---
NEUROLOGY CONSULT Date of Admission Date of Admission DATE: 08/30/18 TIME: 12:19 Reason for Consult Reason for Consult: Left-sided numbness Referring Physician Referring Physician: Dr. Rausch Source Source: Chart review, Patient History of Present Illness History of Present Illness The patient is a 48-year-old right-handed male who came to the emergency department last night with left-sided numbness and headache. The symptoms started about 2 days ago. He describes numbness on the entire left side of his body and pain around the left eye. In the emergency department he was found to have a glucose level of 444 and blood pressure 197/122. He denies the prior history of stroke, seizure, or head injury. He is feeling better today. 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 Current Medications Current Medications Current Medications Sodium Chloride 1,000 ml @ 1,000 mls/hr 1X ONCE IV Last administered on at 17:37; Start 08/29/18 at 17:15; Stop 08/29/18 at 18:14; Status DC Ceftriaxone Sodium (Rocephin) 1 gm 1X ONCE IVP Last administered on 08/29/18at 17:37; Start 08/29/18 at 17:30; Stop 08/29/18 at 17:31; Status DC Insulin Human Regular (HumuLIN R VIAL) 10 unit 1X ONCE IV Last administered on 08/29/18at 17:45; Start 08/29/18 at 17:30; Stop 08/29/18 at 17:31; Status DC Ondansetron HCl (Zofran) 4 mg PRN Q8HRS PRN IV NAUSEA/VOMITING; Start 08/29/18 at 17:45; Stop 08/30/18 at 17:44 Sodium Chloride 1,000 ml @ 100 mls/hr Q10H IV Last administered on 08/30/18at 03:45; Start 08/29/18 at 17:45; Stop 08/30/18 at 17:44 Labetalol HCl (Normodyne Iv Push) 10 mg 1X ONCE IVP Last administered on at 18:18; Start 08/29/18 at 18:00; Stop 08/29/18 at 18:04; Status DC Labetalol HCl (Normodyne Iv Push) 10 mg 1X ONCE IVP ; Start 08/29/18 at 18:00; Stop 08/29/18 at 18:01; Status UNV Ondansetron HCl (Zofran) 4 mg PRN Q6HRS PRN IV NAUSEA/VOMITING; Start 08/29/18 at 18:00 Prochlorperazine Edisylate (Compazine) 10 mg PRN Q6HRS PRN IV NAUSEA/VOMITING; Start 08/29/18 at 18:00 Zolpidem Tartrate (Ambien) 5 mg PRN QHS PRN PO INSOMNIA, MAY REPEAT IN 1HR; Start 08/29/18 at 18:00 Acetaminophen/ Hydrocodone Bitart (Lortab 5/325) 1 tab PRN Q4HRS PRN PO MILD PAIN; Start 08/29/18 at 18:00 Acetaminophen (Tylenol) 650 mg PRN Q6HRS PRN PO Headaches, Temp > 101.5F; Start 08/29/18 at 18:00 Senna/Docusate Sodium (Senna Plus) 1 tab BID PO Last administered on 08/30/18at 08:21; Start 08/29/18 at 21:00 Magnesium Hydroxide (Milk Of Magnesia) 2,400 mg PRN Q12HR PRN PO CONSTIPATION; Start 08/29/18 at 18:00 Heparin Sodium (Porcine) (Heparin Sodium) 5,000 unit Q8HRS SQ Last administered on 08/30/18at 06:07; Start 08/29/18 at 18:00 Insulin Glargine (Lantus) 8 units QHS SQ Last administered on 08/29/18at 22:16; Start 08/29/18 at 21:00 Insulin Human Lispro (HumaLOG) 0-7 UNITS TIDWMEALS SQ Last administered on 08/30at 08:24; Start 08/30/18 at 08:00 Dextrose (Dextrose 50%-Water Syringe) 12.5 gm PRN Q15MIN PRN IV SEE COMMENTS; Start 08/29/18 at 18:00 Labetalol HCl (Normodyne Iv Push) 10 mg PRN Q4HRS PRN IVP htn; Start 08/29/18 at 18:00 Amoxicillin/ Clavulanate Potassium (Augmentin 875/ 125mg) 1 tab BID PO Last administered on 08/30/18 08:20; Start 08/29/18 at 21:00 Aspirin (Children'S Aspirin) 324 mg 1X ONCE PO Last administered on 08/29/18 22:00; Start 08/29/18 at 22:00; Stop 08/29/18 at 22:01; Status DC Aspirin (Ecotrin) 81 mg DAILYWBKFT PO Last administered on 08/30/18at 08:21; Start 08/30/18 at 08:00 Atorvastatin Calcium (Lipitor) 40 mg QHS PO Last administered on 08/29/18 21: 30; Start 08/29/18 at 21:30 Potassium Chloride (Klor-Con) 40 meq 1X ONCE PO Last administered on 08:20; Start 08/30/18 at 07:30; Stop 08/30/18 at 07:31; Status DC Clindamycin Phosphate 50 ml @ 100 mls/hr Q8HRS IV Last administered on at 10:24; Start 08/30/18 at 09:15 Lisinopril (Prinivil) 20 mg DAILY PO Last administered on 08/30/18 10:30; Start 08/30/18 at 09:15 Allergies Allergies: Coded Allergies: No Known Drug Allergies (Unverified , 08/29/18) ROS Review of System Negative for fever, chills, weight loss, shortness of breath, chest pain, indigestion, hematochezia, melena, and dysuria. Full 14-point review of systems is negative. Physical Exam Physical Examination General: Well-developed, well-nourished male in no acute distress HEENT: Normocephalic andatraumatic.Temporal arteriespulsatile and nontender. Neck: Supple without bruit, no meningismus Musculoskeletal: Stability:see neurologic. Gait exam:see neurologic. Tone:see neurologic. Strength:see neurologic. Neurological: Mental Status:intact, orientation, memory, attention span/concentration, language, fund of knowledge normal. Cranial Nerves:Pupils equal and reactive to light, extraocular movements areintact, visual ellison are full to confrontation. Facial sensation is altered surrounding the left orbit, he said that the pin feels different, but cannot further characterize it. There is no facial asymmetry. Vestibulo-ocular reflex is intact. Palate elevates and tongue protrudes in midline. All other cranial related problems are negative except as mentioned before.Reflexes:2+ and symmetric with flexor plantar responses. Motor:5/5 strength with normal tone and bulk. Coordination:Finger-nose finger and [id number] testing are normal. Rapid alternating movements and fine finger movements are intact. Gait:Normal, including tandem. Sensory:Normal pinprick, vibration, light touch, proprioception. Vitals VITALS Vital Signs Date Time Temp Pulse Resp B/P (MAP) Pulse Ox O2 Delivery O2 Flow Rate FiO2 08/30/18 11:00 98.5 107 18 142/93 (109) 99 Room Air 98.5 08/30/18 08:00 98.0 Labs Labs Laboratory Tests Test 08/29/18 16:35 08/29/18 19:19 08/29/18 20:57 08/30/18 04:55 White Blood Count 11.1 x10^3/uL (4.0-11.0) 10.5 x10^3/uL (4.0-11.0) Red Blood Count 5.04 x10^6/uL (4.30-5.70) 4.50 x10^6/uL (4.30-5.70) Hemoglobin 15.5 g/dL (13.0-17.5) 14.0 g/dL (13.0-17.5) Hematocrit 45.2 % (39.0-53.0) 40.6 % (39.0-53.0) Mean Corpuscular Volume 90 fL (79-100) 90 fL (79-100) Mean Corpuscular Hemoglobin 31 pg (25-35) 31 pg (25-35) Mean Corpuscular Hemoglobin Concent 34 g/dL (31-37) 35 g/dL (31-37) Red Cell Distribution Width 12.9 % (11.5-14.5) 12.8 % (11.5-14.5) Platelet Count 308 x10^3/uL (140-400) 277 x10^3/uL (140-400) Neutrophils (%) (Auto) 73 % (31-73) 69 % (31-73) Lymphocytes (%) (Auto) 17 % (24-48) 21 % (24-48) Monocytes (%) (Auto) 9 % (0-9) 9 % (0-9) Eosinophils (%) (Auto) 0 % (0-3) 1 % (0-3) Basophils (%) (Auto) 1 % (0-3) 1 % (0-3) Neutrophils # (Auto) 8.1 x10^3uL (1.8-7.7) 7.2 x10^3uL (1.8-7.7) Lymphocytes # (Auto) 1.9 x10^3/uL (1.0-4.8) 2.2 x10^3/uL (1.0-4.8) Monocytes # (Auto) 0.9 x10^3/uL (0.0-1.1) 0.9 x10^3/uL (0.0-1.1) Eosinophils # (Auto) 0.0 x10^3/uL (0.0-0.7) 0.1 x10^3/uL (0.0-0.7) Basophils # (Auto) 0.1 x10^3/uL (0.0-0.2) 0.1 x10^3/uL (0.0-0.2) Prothrombin Time 12.2 SEC (11.7-14.0) Prothromb Time International Ratio 0.9 (0.8-1.1) Activated Partial Thromboplast Time 29 SEC (24-38) Sodium Level 136 mmol/L (136-145) 140 mmol/L (136-145) Potassium Level 3.6 mmol/L (3.5-5.1) 3.3 mmol/L (3.5-5.1) Chloride Level 97 mmol/L (98-107) 102 mmol/L (98-107) Carbon Dioxide Level 28 mmol/L (21-32) 28 mmol/L (21-32) Anion Gap 11 (6-14) 10 (6-14) Blood Urea Nitrogen 11 mg/dL (8-26) 10 mg/dL (8-26) Creatinine 0.9 mg/dL (0.7-1.3) 0.6 mg/dL (0.7-1.3) Estimated GFR (Cockcroft-Gault) 90.4 144.4 BUN/Creatinine Ratio 12 (6-20) Glucose Level 444 mg/dL (70-99) 178 mg/dL (70-99) Glucose (Fingerstick) 435 mg/dL (70-99) 177 mg/dL (70-99) 197 mg/dL (70-99) Calcium Level 9.1 mg/dL (8.5-10.1) 8.0 mg/dL (8.5-10.1) Magnesium Level 2.0 mg/dL (1.8-2.4) Total Bilirubin 0.4 mg/dL (0.2-1.0) Aspartate Amino Transf (AST/SGOT) 12 U/L (15-37) Alanine Aminotransferase (ALT/SGPT) 16 U/L (16-63) Alkaline Phosphatase 100 U/L (46-116) Troponin I Quantitative < 0.017 ng/mL (0.000-0.055) YJ-Hlo-X-Type Natriuretic Peptide 100 pg/mL (0-124) Total Protein 7.7 g/dL (6.4-8.2) Albumin 3.4 g/dL (3.4-5.0) Albumin/Globulin Ratio 0.8 (1.0-1.7) Thyroid Stimulating Hormone (TSH) 0.405 uIU/mL (0.358-3.74) Ethyl Alcohol Level < 10 mg/dL (0-10) Test 08/30/18 07:04 08/30/18 08:05 Glucose (Fingerstick) 189 mg/dL (70-99) Urine Collection Type Unknown Urine Color Yellow Urine Clarity Clear Urine pH 5.5 Urine Specific Henderson 1.025 Urine Protein Negative mg/dL (NEG-TRACE) Urine Glucose (UA) >=1000 mg/dL (NEG) Urine Ketones (Stick) 40 mg/dL (NEG) Urine Blood Negative (NEG) Urine Nitrite Negative (NEG) Urine Bilirubin Negative (NEG) Urine Urobilinogen Dipstick 1.0 mg/dL (0.2 mg/dL) Urine Leukocyte Esterase Negative (NEG) Urine RBC 0 /HPF (0-2) Urine WBC 0 /HPF (0-4) Urine Bacteria 0 /HPF (0-FEW) Urine Opiates Screen Neg (NEG) Urine Methadone Screen Neg (NEG) Urine Barbiturates Neg (NEG) Urine Phencyclidine Screen Neg (NEG) Urine Amphetamine/Methamphetamine Pos (NEG) Urine Benzodiazepines Screen Neg (NEG) Urine Cocaine Screen Neg (NEG) Urine Cannabinoids Screen Neg (NEG) Urine Ethyl Alcohol Neg (NEG) Laboratory Tests Test 08/29/18 16:35 08/29/18 19:19 08/29/18 20:57 08/30/18 04:55 White Blood Count 11.1 x10^3/uL (4.0-11.0) 10.5 x10^3/uL (4.0-11.0) Red Blood Count 5.04 x10^6/uL (4.30-5.70) 4.50 x10^6/uL (4.30-5.70) Hemoglobin 15.5 g/dL (13.0-17.5) 14.0 g/dL (13.0-17.5) Hematocrit 45.2 % (39.0-53.0) 40.6 % (39.0-53.0) Mean Corpuscular Volume 90 fL (79-100) 90 fL (79-100) Mean Corpuscular Hemoglobin 31 pg (25-35) 31 pg (25-35) Mean Corpuscular Hemoglobin Concent 34 g/dL (31-37) 35 g/dL (31-37) Red Cell Distribution Width 12.9 % (11.5-14.5) 12.8 % (11.5-14.5) Platelet Count 308 x10^3/uL (140-400) 277 x10^3/uL (140-400) Neutrophils (%) (Auto) 73 % (31-73) 69 % (31-73) Lymphocytes (%) (Auto) 17 % (24-48) 21 % (24-48) Monocytes (%) (Auto) 9 % (0-9) 9 % (0-9) Eosinophils (%) (Auto) 0 % (0-3) 1 % (0-3) Basophils (%) (Auto) 1 % (0-3) 1 % (0-3) Neutrophils # (Auto) 8.1 x10^3uL (1.8-7.7) 7.2 x10^3uL (1.8-7.7) Lymphocytes # (Auto) 1.9 x10^3/uL (1.0-4.8) 2.2 x10^3/uL (1.0-4.8) Monocytes # (Auto) 0.9 x10^3/uL (0.0-1.1) 0.9 x10^3/uL (0.0-1.1) Eosinophils # (Auto) 0.0 x10^3/uL (0.0-0.7) 0.1 x10^3/uL (0.0-0.7) Basophils # (Auto) 0.1 x10^3/uL (0.0-0.2) 0.1 x10^3/uL (0.0-0.2) Prothrombin Time 12.2 SEC (11.7-14.0) Prothromb Time International Ratio 0.9 (0.8-1.1) Activated Partial Thromboplast Time 29 SEC (24-38) Sodium Level 136 mmol/L (136-145) 140 mmol/L (136-145) Potassium Level 3.6 mmol/L (3.5-5.1) 3.3 mmol/L (3.5-5.1) Chloride Level 97 mmol/L (98-107) 102 mmol/L (98-107) Carbon Dioxide Level 28 mmol/L (21-32) 28 mmol/L (21-32) Anion Gap 11 (6-14) 10 (6-14) Blood Urea Nitrogen 11 mg/dL (8-26) 10 mg/dL (8-26) Creatinine 0.9 mg/dL (0.7-1.3) 0.6 mg/dL (0.7-1.3) Estimated GFR (Cockcroft-Gault) 90.4 144.4 BUN/Creatinine Ratio 12 (6-20) Glucose Level 444 mg/dL (70-99) 178 mg/dL (70-99) Glucose (Fingerstick) 435 mg/dL (70-99) 177 mg/dL (70-99) 197 mg/dL (70-99) Calcium Level 9.1 mg/dL (8.5-10.1) 8.0 mg/dL (8.5-10.1) Magnesium Level 2.0 mg/dL (1.8-2.4) Total Bilirubin 0.4 mg/dL (0.2-1.0) Aspartate Amino Transf (AST/SGOT) 12 U/L (15-37) Alanine Aminotransferase (ALT/SGPT) 16 U/L (16-63) Alkaline Phosphatase 100 U/L (46-116) Troponin I Quantitative < 0.017 ng/mL (0.000-0.055) OJ-Yom-T-Type Natriuretic Peptide 100 pg/mL (0-124) Total Protein 7.7 g/dL (6.4-8.2) Albumin 3.4 g/dL (3.4-5.0) Albumin/Globulin Ratio 0.8 (1.0-1.7) Thyroid Stimulating Hormone (TSH) 0.405 uIU/mL (0.358-3.74) Ethyl Alcohol Level < 10 mg/dL (0-10) Test 08/30/18 07:04 08/30/18 08:05 Glucose (Fingerstick) 189 mg/dL (70-99) Urine Collection Type Unknown Urine Color Yellow Urine Clarity Clear Urine pH 5.5 Urine Specific Henderson 1.025 Urine Protein Negative mg/dL (NEG-TRACE) Urine Glucose (UA) >=1000 mg/dL (NEG) Urine Ketones (Stick) 40 mg/dL (NEG) Urine Blood Negative (NEG) Urine Nitrite Negative (NEG) Urine Bilirubin Negative (NEG) Urine Urobilinogen Dipstick 1.0 mg/dL (0.2 mg/dL) Urine Leukocyte Esterase Negative (NEG) Urine RBC 0 /HPF (0-2) Urine WBC 0 /HPF (0-4) Urine Bacteria 0 /HPF (0-FEW) Urine Opiates Screen Neg (NEG) Urine Methadone Screen Neg (NEG) Urine Barbiturates Neg (NEG) Urine Phencyclidine Screen Neg (NEG) Urine Amphetamine/Methamphetamine Pos (NEG) Urine Benzodiazepines Screen Neg (NEG) Urine Cocaine Screen Neg (NEG) Urine Cannabinoids Screen Neg (NEG) Urine Ethyl Alcohol Neg (NEG) Images Images CT HEAD WO CONTRAST No acute intracranial hemorrhage or midline shift or mass-effect or hydrocephalus or extra-axial fluid collection is seen. No focal hypodense area or sulci effacement is seen to indicate an acute infarct or edema radiographically. No skull fracture or pneumocephalus is seen. No opacification of the mastoid sinuses or the middle ear cavities is seen. There is a large air-fluid level with mucosal thickening of the left maxillary sinus. The maxillary sinuses are not completely seen in this study. Impression: No acute intracranial abnormality is seen. Severe acute left maxillary sinusitis. Assessment/Plan Assessment/Plan Impression: Stroke-like symptoms, probably related to hypertensive and hyperglycemic encephalopathy. Left maxillary sinusitis probably contributes to the facial pain and altered sensation. Recommendations: Await brain MRI. Further studies only if this is abnormal. Treatment of hypertension and hyperglycemia Treatment of the maxillarysinusitis. Aim for discharge later today. Discussed with Dr. Collados. Think you for letting me help with the patient's care. CHRISTIAN DIMAS MD Aug 30, 2018 12:24
--- NOTE | 2018-08-30 12:53 | RAD ---
MRI of the brain without contrast 08/30/2018 Clinical History: Slurred speech and left-sided weakness. Technique: Unenhanced T1-weighted sagittal and axial, T2-weighted axial and coronal and FLAIR, gradient echo and diffusion-weighted axial images of the brain were obtained. Findings: Comparison is made to patient's CT scan of the head dated 08/29/2018. There is mild generalized parenchymal atrophy. Patchy, confluent and several small focal areas of increased signal intensity are seen within the periventricular and subcortical white matter of both cerebral hemispheres on the FLAIR and T2-weighted images consistent most likely with areas of mild small vessel ischemic disease. No acute parenchymal abnormality is seen. No extra-axial fluid collection is seen. There is no MRI evidence of acute ischemia/infarction. Moderate to severe mucosal thickening is seen involving the left maxillary sinus. Mild mucosal thickening in seen scattered throughout the remaining paranasal sinuses. There are minimal bilateral mastoid effusions. Normal flow voids are seen within the major vascular structures surrounding the brain parenchyma. Impression: No acute parenchymal abnormality is seen. Electronically signed by: Nilson Gusman MD (08/30/2018 12:49 PM) [id number]
[2018-08-30] MEDS ORDERED: AMOX1TAB11 PO (13:41)
[2018-08-30] MEDS ORDERED: INSU100I13 SQ (13:41)
[2018-08-30] MEDS ORDERED: ATOR40TA59 PO (13:41)
[2018-08-30] MEDS ORDERED: LISI-130 PO (13:41)
--- NOTE | 2018-08-30 14:52 | NUR ---
LILIBETH following for discharge planning. Chart reviewed and DW RN. Pt lives at home alone and is self pay. Spoke with PT and recommendation is home independent. Will continue to assess needs.
[2018-08-30 14:53] VITALS: BP 125/72
--- NOTE | 2018-08-30 15:56 | PDOC3 ---
Discharge Summary Visit Information Date of Admission: Aug 29, 2018 Date of Discharge: Aug 30, 2018 Admitting Diagnosis: Left sided weakness Final Diagnosis Problems Medical Problems: (1) Facial paresthesia Status: Acute (2) Hyperglycemia Status: Acute (3) Hypertension Status: Acute (4) Paresthesia of left upper and lower extremity Status: Acute (5) Sinusitis, acute Status: Acute Brief Hospital Course Allergies Allergies Coded Allergies Type Severity Reaction Last Updated Verified No Known Drug Allergies 08/29/18 No Vital Signs Vital Signs Date Time Temp Pulse Resp B/P (MAP) Pulse Ox O2 Delivery O2 Flow Rate FiO2 08/30/18 14:53 99.0 95 18 125/72 (89) 99 Room Air 99.0 08/30/18 08:00 98.0 Lab Results Laboratory Tests Test 08/29/18 16:35 08/29/18 19:19 08/29/18 20:57 08/30/18 04:55 White Blood Count 11.1 x10^3/uL (4.0-11.0) 10.5 x10^3/uL (4.0-11.0) Red Blood Count 5.04 x10^6/uL (4.30-5.70) 4.50 x10^6/uL (4.30-5.70) Hemoglobin 15.5 g/dL (13.0-17.5) 14.0 g/dL (13.0-17.5) Hematocrit 45.2 % (39.0-53.0) 40.6 % (39.0-53.0) Mean Corpuscular Volume 90 fL (79-100) 90 fL (79-100) Mean Corpuscular Hemoglobin 31 pg (25-35) 31 pg (25-35) Mean Corpuscular Hemoglobin Concent 34 g/dL (31-37) 35 g/dL (31-37) Red Cell Distribution Width 12.9 % (11.5-14.5) 12.8 % (11.5-14.5) Platelet Count 308 x10^3/uL (140-400) 277 x10^3/uL (140-400) Neutrophils (%) (Auto) 73 % (31-73) 69 % (31-73) Lymphocytes (%) (Auto) 17 % (24-48) 21 % (24-48) Monocytes (%) (Auto) 9 % (0-9) 9 % (0-9) Eosinophils (%) (Auto) 0 % (0-3) 1 % (0-3) Basophils (%) (Auto) 1 % (0-3) 1 % (0-3) Neutrophils # (Auto) 8.1 x10^3uL (1.8-7.7) 7.2 x10^3uL (1.8-7.7) Lymphocytes # (Auto) 1.9 x10^3/uL (1.0-4.8) 2.2 x10^3/uL (1.0-4.8) Monocytes # (Auto) 0.9 x10^3/uL (0.0-1.1) 0.9 x10^3/uL (0.0-1.1) Eosinophils # (Auto) 0.0 x10^3/uL (0.0-0.7) 0.1 x10^3/uL (0.0-0.7) Basophils # (Auto) 0.1 x10^3/uL (0.0-0.2) 0.1 x10^3/uL (0.0-0.2) Prothrombin Time 12.2 SEC (11.7-14.0) Prothromb Time International Ratio 0.9 (0.8-1.1) Activated Partial Thromboplast Time 29 SEC (24-38) Sodium Level 136 mmol/L (136-145) 140 mmol/L (136-145) Potassium Level 3.6 mmol/L (3.5-5.1) 3.3 mmol/L (3.5-5.1) Chloride Level 97 mmol/L (98-107) 102 mmol/L (98-107) Carbon Dioxide Level 28 mmol/L (21-32) 28 mmol/L (21-32) Anion Gap 11 (6-14) 10 (6-14) Blood Urea Nitrogen 11 mg/dL (8-26) 10 mg/dL (8-26) Creatinine 0.9 mg/dL (0.7-1.3) 0.6 mg/dL (0.7-1.3) Estimated GFR (Cockcroft-Gault) 90.4 144.4 BUN/Creatinine Ratio 12 (6-20) Glucose Level 444 mg/dL (70-99) 178 mg/dL (70-99) Glucose (Fingerstick) 435 mg/dL (70-99) 177 mg/dL (70-99) 197 mg/dL (70-99) Calcium Level 9.1 mg/dL (8.5-10.1) 8.0 mg/dL (8.5-10.1) Magnesium Level 2.0 mg/dL (1.8-2.4) Total Bilirubin 0.4 mg/dL (0.2-1.0) Aspartate Amino Transf (AST/SGOT) 12 U/L (15-37) Alanine Aminotransferase (ALT/SGPT) 16 U/L (16-63) Alkaline Phosphatase 100 U/L (46-116) Troponin I Quantitative < 0.017 ng/mL (0.000-0.055) DP-Pvb-D-Type Natriuretic Peptide 100 pg/mL (0-124) Total Protein 7.7 g/dL (6.4-8.2) Albumin 3.4 g/dL (3.4-5.0) Albumin/Globulin Ratio 0.8 (1.0-1.7) Thyroid Stimulating Hormone (TSH) 0.405 uIU/mL (0.358-3.74) Ethyl Alcohol Level < 10 mg/dL (0-10) Test 08/30/18 07:04 08/30/18 08:05 08/30/18 12:21 Glucose (Fingerstick) 189 mg/dL (70-99) 233 mg/dL (70-99) Urine Collection Type Unknown Urine Color Yellow Urine Clarity Clear Urine pH 5.5 Urine Specific [place] 1.025 Urine Protein Negative mg/dL (NEG-TRACE) Urine Glucose (UA) >=1000 mg/dL (NEG) Urine Ketones (Stick) 40 mg/dL (NEG) Urine Blood Negative (NEG) Urine Nitrite Negative (NEG) Urine Bilirubin Negative (NEG) Urine Urobilinogen Dipstick 1.0 mg/dL (0.2 mg/dL) Urine Leukocyte Esterase Negative (NEG) Urine RBC 0 /HPF (0-2) Urine WBC 0 /HPF (0-4) Urine Bacteria 0 /HPF (0-FEW) Urine Opiates Screen Neg (NEG) Urine Methadone Screen Neg (NEG) Urine Barbiturates Neg (NEG) Urine Phencyclidine Screen Neg (NEG) Urine Amphetamine/Methamphetamine Pos (NEG) Urine Benzodiazepines Screen Neg (NEG) Urine Cocaine Screen Neg (NEG) Urine Cannabinoids Screen Neg (NEG) Urine Ethyl Alcohol Neg (NEG) Laboratory Tests Test 08/29/18 16:35 08/29/18 19:19 08/29/18 20:57 08/30/18 04:55 White Blood Count 11.1 x10^3/uL (4.0-11.0) 10.5 x10^3/uL (4.0-11.0) Red Blood Count 5.04 x10^6/uL (4.30-5.70) 4.50 x10^6/uL (4.30-5.70) Hemoglobin 15.5 g/dL (13.0-17.5) 14.0 g/dL (13.0-17.5) Hematocrit 45.2 % (39.0-53.0) 40.6 % (39.0-53.0) Mean Corpuscular Volume 90 fL (79-100) 90 fL (79-100) Mean Corpuscular Hemoglobin 31 pg (25-35) 31 pg (25-35) Mean Corpuscular Hemoglobin Concent 34 g/dL (31-37) 35 g/dL (31-37) Red Cell Distribution Width 12.9 % (11.5-14.5) 12.8 % (11.5-14.5) Platelet Count 308 x10^3/uL (140-400) 277 x10^3/uL (140-400) Neutrophils (%) (Auto) 73 % (31-73) 69 % (31-73) Lymphocytes (%) (Auto) 17 % (24-48) 21 % (24-48) Monocytes (%) (Auto) 9 % (0-9) 9 % (0-9) Eosinophils (%) (Auto) 0 % (0-3) 1 % (0-3) Basophils (%) (Auto) 1 % (0-3) 1 % (0-3) Neutrophils # (Auto) 8.1 x10^3uL (1.8-7.7) 7.2 x10^3uL (1.8-7.7) Lymphocytes # (Auto) 1.9 x10^3/uL (1.0-4.8) 2.2 x10^3/uL (1.0-4.8) Monocytes # (Auto) 0.9 x10^3/uL (0.0-1.1) 0.9 x10^3/uL (0.0-1.1) Eosinophils # (Auto) 0.0 x10^3/uL (0.0-0.7) 0.1 x10^3/uL (0.0-0.7) Basophils # (Auto) 0.1 x10^3/uL (0.0-0.2) 0.1 x10^3/uL (0.0-0.2) Prothrombin Time 12.2 SEC (11.7-14.0) Prothromb Time International Ratio 0.9 (0.8-1.1) Activated Partial Thromboplast Time 29 SEC (24-38) Sodium Level 136 mmol/L (136-145) 140 mmol/L (136-145) Potassium Level 3.6 mmol/L (3.5-5.1) 3.3 mmol/L (3.5-5.1) Chloride Level 97 mmol/L (98-107) 102 mmol/L (98-107) Carbon Dioxide Level 28 mmol/L (21-32) 28 mmol/L (21-32) Anion Gap 11 (6-14) 10 (6-14) Blood Urea Nitrogen 11 mg/dL (8-26) 10 mg/dL (8-26) Creatinine 0.9 mg/dL (0.7-1.3) 0.6 mg/dL (0.7-1.3) Estimated GFR (Cockcroft-Gault) 90.4 144.4 BUN/Creatinine Ratio 12 (6-20) Glucose Level 444 mg/dL (70-99) 178 mg/dL (70-99) Glucose (Fingerstick) 435 mg/dL (70-99) 177 mg/dL (70-99) 197 mg/dL (70-99) Calcium Level 9.1 mg/dL (8.5-10.1) 8.0 mg/dL (8.5-10.1) Magnesium Level 2.0 mg/dL (1.8-2.4) Total Bilirubin 0.4 mg/dL (0.2-1.0) Aspartate Amino Transf (AST/SGOT) 12 U/L (15-37) Alanine Aminotransferase (ALT/SGPT) 16 U/L (16-63) Alkaline Phosphatase 100 U/L (46-116) Troponin I Quantitative < 0.017 ng/mL (0.000-0.055) HN-Knf-E-Type Natriuretic Peptide 100 pg/mL (0-124) Total Protein 7.7 g/dL (6.4-8.2) Albumin 3.4 g/dL (3.4-5.0) Albumin/Globulin Ratio 0.8 (1.0-1.7) Thyroid Stimulating Hormone (TSH) 0.405 uIU/mL (0.358-3.74) Ethyl Alcohol Level < 10 mg/dL (0-10) Test 08/30/18 07:04 08/30/18 08:05 08/30/18 12:21 Glucose (Fingerstick) 189 mg/dL (70-99) 233 mg/dL (70-99) Urine Collection Type Unknown Urine Color Yellow Urine Clarity Clear Urine pH 5.5 Urine Specific [place] 1.025 Urine Protein Negative mg/dL (NEG-TRACE) Urine Glucose (UA) >=1000 mg/dL (NEG) Urine Ketones (Stick) 40 mg/dL (NEG) Urine Blood Negative (NEG) Urine Nitrite Negative (NEG) Urine Bilirubin Negative (NEG) Urine Urobilinogen Dipstick 1.0 mg/dL (0.2 mg/dL) Urine Leukocyte Esterase Negative (NEG) Urine RBC 0 /HPF (0-2) Urine WBC 0 /HPF (0-4) Urine Bacteria 0 /HPF (0-FEW) Urine Opiates Screen Neg (NEG) Urine Methadone Screen Neg (NEG) Urine Barbiturates Neg (NEG) Urine Phencyclidine Screen Neg (NEG) Urine Amphetamine/Methamphetamine Pos (NEG) Urine Benzodiazepines Screen Neg (NEG) Urine Cocaine Screen Neg (NEG) Urine Cannabinoids Screen Neg (NEG) Urine Ethyl Alcohol Neg (NEG) Brief Hospital Course Mr Murhpy is a 48 year old male (hungarian speaking only) with uncertain PMHx (at least HTN) p/w left hand resident surgeon weakness with associated left- sided facial numbness and pain, left side headache for 2 days. Patient also has numbness and tingling sensation on his left-sided face and left upper and lower extremities. Spouse did note that he has some slurred speech as well since 2 days ago. Patient is a smoker, has history of HTN but not on any medication. He does not have any history of CAD, DM, not on any medication, denied any recent travel or recent illnesses. He denies any chest pain, no abdominal pain, no nausea vomiting. He denies any head or neck injury. He denies any fever. In ED was noted with BP 197/122 and glucose > 400 fasting (not DKA) and CT head with no intracranial abnormality, but severe left maxillary sinusitis noted. 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 Feeling a bit better today, less confused. Feels his left sided weakness improved. Still with some left eye pain and left maxillary pain, is better than last night. BP better. Has some new cough, states this happens every time he stops smoking. His UDS returned positive for methamphetamine, he notes he will stop using this. I noted his hypertension likely caused his encephalopathy and his left sided weakness and paresthesias. Had consultation with neurology and MRI brain was negative for CVA or intracranial pathology. 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 Will control BP, ASA, statin. Consulted Neurology. MRI is negative Malignant HTN - could be cause of his weakness as well, will control with IV labetalol. Added lisinopril, checked microalbumin Acute encephalopathy - per spouse, has been confused, less so today. likely from BP, methamphetamine, and hyperglycemia. Will control BP Hyperglycemia - likely has DM, will place on basal bolus plus regimen, checked A1c Left maxillary sinusitis - will treat with augmentin, add clindamycin today x1 dose, d/c'd on augmentin 10 days Smoker - higher risk for CVA, nicotine patch. Greater than 30 minutes spent on discharge including diabetic teaching, methamphetamine cessation counseling and translation into Brazilian. Discharge Information Condition at Discharge: Improved Follow Up: Weeks (2) Disposition/Orders: D/C to Home Scheduled Amoxicillin/Potassium Clav (Amox Tr-K Clv 875-125 Mg Tab) 1 Each Tablet, 1 TAB PO BID for left maxillary sinusitis for 10 Days, #20 Prescribed by: SAAD CALVERT MD on 08/30/18 1341 Atorvastatin Calcium (Atorvastatin Calcium) 40 Mg Tablet, 40 MG PO QHS for DM2 for 30 Days, #30 Prescribed by: SAAD CALVERT MD on 08/30/18 1341 Insulin Glargine,Hum.rec.anlog (Lantus Solostar) 100 Unit/1 Ml Insuln.pen, 8 UNITS SQ QHS for DM2 for 30 Days, #1 Ref 2 Prescribed by: SAAD CALVERT MD on 08/30/18 1341 Lisinopril (Lisinopril) 40 Mg Tablet, 40 MG PO DAILY for HTN/DM2 for 30 Days, # 30 Prescribed by: SAAD CALVERT MD on 08/30/18 1341 SAAD CALVERT MD Aug 30, 2018 15:56
--- NOTE | 2018-08-30 16:35 | NUR ---
Reviewed discharge instructions with Crystal. She speaks armenian. Discharge teaching also provided by Dr Rausch with pt using [employer] phone. Discussed activity, diet, medications and followup. Both verbalized understanding. Pt discharged home with family friend.
[2018-08-30 19:17] LABS: CREAT RD UR 117.6 mg/dL (Not Estab.); MICRO CREAT RATIO 54.6 mg/g creat (0.0-30.0); MICROALB RD UR 64.2 ug/mL (Not Estab.)
[2018-08-31 00:10] LABS: HEMOGLOBIN A1C 11.8 % (4.8-5.6)
== END 2018-08-30 16:35 | disposition home or self-care (01) | DRG 153 ==
LOC: ER 16:10 → 6 SOUTH 17:35
PROVIDERS: ADMIT Internal Medicine; ATTEND Internal Medicine
DX: J01.00 Acute maxillary sinusitis, unspecified (principal); I67.4 Hypertensive encephalopathy; R53.1 Weakness; E11.65 Type 2 diabetes mellitus with hyperglycemia; I10 Essential (primary) hypertension; F17.210 Nicotine dependence, cigarettes, uncomplicated; F15.90 Other stimulant use, unspecified, uncomplicated; Z83.3 Family history of diabetes mellitus; Z82.49 Family history of ischemic heart disease and other diseases of the circulatory system
CPT/HCPCS: 36415; 70450; 70551; 71045; 80048; 80053; 80307; 81001; 82043; 82570; 82962; 83036; 83735; 83880; 84443; 84484; 85025; 85610; 85730; 93005; 96361; 96374; 96375; G0480; J0696; J1644; J1815; J3490; J7030; 99285-25